=== PATIENT | female | born 1960 | race Caucasian/White ===

== ENCOUNTER 2017-05-20 11:54 | Outpatient (CLI) | payer OTHER ==
--- NOTE | 2017-05-20 13:14 | XRAY Report ---
THREE-VIEW LEFT SHOULDER: 05/20/2017 CLINICAL INDICATION: Pain. FINDINGS: AP, oblique, scapular Y views of the left shoulder demonstrate osteoarthritis, with inferi or acromial spurring. There is no evidence of acute fracture or dislocation. No radiopaque foreign body is seen in the soft tissues. IMPRESSION: OSTEOARTHRITIS OF THE ACROMIOCLAVICULAR JOINT. JOB #: [id number] EXT JOB #:[id number]
== END 2017-05-20 11:55 | disposition home or self-care (01) ==
LOC: DI 11:54
PROVIDERS: ATTEND Physician Assistant
DX: M19.012 Primary osteoarthritis, left shoulder (principal)

== ENCOUNTER 2018-07-12 14:42 | Outpatient (CLI) | payer OTHER | END 2018-07-12 14:43 | disposition home or self-care (01) | LOC: RT 14:42 | PROVIDERS: ATTEND Physician Assistant | DX: Z13.6 Encounter for screening for cardiovascular disorders (principal) | CPT/HCPCS: 93005 ==

== ENCOUNTER 2022-10-07 13:28 | Outpatient (CLI) | payer OTHER ==
--- NOTE | 2022-10-14 17:00 | Mammography Report ---
BILATERAL DIGITAL SCREENING MAMMOGRAM 3D/2D: 10/07/2022 CLINICAL: Routine screening. Comparison is made to exams dated: 11/21/2020 mammogram - [facility], 07/17/2015 mammogram, and 09/04 mammogram - [facility]. Both breasts are almost entirely fatty (category a/<25% glandular tissue). No significant masses, calcifications, or other findings are seen in either breast. There has been no significant interval change. IMPRESSION: NEGATIVE There is no mammographic evidence of malignancy. A 1 year screening mammogram is recommended. Based on the Tyrer Cuzick model (a risk assessment model) the patients lifetime risk is 6.7% and her 10 year risk is 2.9%. According to the ACR, ACS, and NCCN guidelines, an annual breast MRI exam thuan g with mammogram is recommended if the patients lifetime risk is 20% or greater. This exam was interpreted at Station ID: [id number]. NOTE: For mammograms, a report in lay terms will be sent to the patient. Approximately 15% of breast malignancies will not be visualized mammographically. In the management of a palpable breast mass, a negative mammogram must not discourage biopsy of a clinically suspicious lesion. Electronically Signed By: Alcon lara/homer:10/13/2022 13:40:13 letter sent: No_Letter ACR BI-RADS Category 1: Negative 3341F PARENCHYMAL PATTERN: (F) - The breast(s) demonstrate(s) diffuse fatty replacement. BI-RADS CATEGORY: (1) - 1 RECOMMENDATION: (ANNUAL) - Recommend routine annual screening mammography. [id number] 1 year screening LATERALITY: (B)
== END 2022-10-07 13:29 | disposition home or self-care (01) ==
LOC: DI.N 13:28
PROVIDERS: ATTEND Internal Medicine
DX: Z12.31 Encounter for screening mammogram for malignant neoplasm of breast (principal)

== ENCOUNTER 2023-11-17 15:00 | Outpatient (CLI) | payer OTHER ==
--- NOTE | 2023-11-21 09:19 | Mammography Report ---
BILATERAL DIGITAL SCREENING MAMMOGRAM 3D/2D: 11/17/2023 CLINICAL: Routine screening. Comparison is made to exams dated: 10/07/2022 mammogram - [facility], 11/21/2020 mamm [facility], 07/17/2015 mammogram, and 09/04/2010 mammogram - [facility]. Both breasts are almost entirely fatty (category a/<25% glandular tissue). No significant masses, calcifications, or other findings are seen in either breast. There has been no significant interval change. IMPRESSION: NEGATIVE There is no mammographic evidence of malignancy. A 1 year screening mammogram is recommended. Based on the Tyrer Cuzick model (a risk assessment model) the patient's lifetime risk is 6.5% and her 10 year risk is 2.9%. According to the ACR, ACS, and NCCN guidelines, an annual breast MRI exam thuan g with mammogram is recommended if the patient's lifetime risk is 20% or greater. This exam was interpreted at Station ID: [id number]. NOTE: For mammograms, a report in lay terms will be sent to the patient. Approximately 15% of breast malignancies will not be visualized mammographically. In the management of a palpable breast mass, a negative mammogram must not discourage biopsy of a clinically suspicious lesion. Electronically Signed By: Shannan allison/homer:11/18/2023 15:23:31 letter sent: No_Letter ACR BI-RADS Category 1: Negative 3341F PARENCHYMAL PATTERN: (F) - The breast(s) demonstrate(s) diffuse fatty replacement. BI-RADS CATEGORY: (1) - 1 RECOMMENDATION: (ANNUAL) - Recommend routine annual screening mammography. [id number] 1 year screening LATERALITY: (B)
== END 2023-11-17 15:01 | disposition home or self-care (01) ==
LOC: DI.N 15:00
PROVIDERS: ATTEND Internal Medicine
DX: Z12.31 Encounter for screening mammogram for malignant neoplasm of breast (principal)